=== PATIENT | female | born 1945 | race Caucasian/White ===

== ENCOUNTER 2017-11-13 16:20 | Emergency (ER) | payer MEDICARE, MEDICAID ==
[~2017-11-13] VITALS: Ht 157.5 cm; Wt 91.4 kg
[2017-11-13 16:55] LABS: BASOPHILS # (AUTO) 0.1 X10'3 (0-0.2); BASOPHILS % (AUTO) 1.4 % (0-1); EOSINOPHILS # (AUTO) 0.2 X10'3 (0-0.9); EOSINOPHILS % (AUTO) 2.5 % (0-6); HEMATOCRIT 41.9 % (35.0-45.0); HEMOGLOBIN 14.1 g/dl (12.0-16.0); LYMPHOCYTES # (AUTO) 1.9 X10'3 (1.1-4.8); LYMPHOCYTES % (AUTO) 23.2 % (21-51); MEAN CORPUSCULAR HEMOGLOBIN 28.5 PG (27.0-31.0); MEAN CORPUSCULAR HGB CONC 33.5 % (33.0-36.5); MEAN CORPUSCULAR VOLUME 85.1 FL (78-98); MEAN PLATELET VOLUME 8.9 FL (7.4-10.4); MONOCYTES # (AUTO) 0.5 X10'3 (0-0.9); MONOCYTES % (AUTO) 5.8 % (2-12); NEUTROPHILS # (AUTO) 5.6 X10'3 (1.8-7.7); NEUTROPHILS % (AUTO) 67.1 % (42-75); PLATELET COUNT 244 X10'3 (140-440); RED BLOOD COUNT 4.93 X10'6 (4.20-5.60); RED CELL DISTRIBUTION WIDTH 15.3 % (11.5-14.5); WHITE BLOOD COUNT 8.3 X10'3 (4.5-11.0)
[2017-11-13 17:08] LABS: ALANINE AMINOTRANSFERASE 20 U/L (12-78); ALBUMIN 3.3 G/DL (3.4-5.0); ALBUMIN/GLOBULIN RATIO 0.8 (1.1-1.5); ALKALINE PHOSPHATASE 83 IU/L (46-116); ANION GAP 6 (8-16); ASPARTATE AMINO TRANSFERASE 15 U/L (10-37); BILIRUBIN,TOTAL 0.3 MG/DL (0.1-1.0); BLOOD UREA NITROGEN 18 MG/DL (7-18); BUN/CREATININE RATIO 13.7 (6.6-38.0); CALCIUM 9.1 MG/DL (8.5-10.1); CHLORIDE 107 MMOL/L (99-107); CREATININE 1.31 MG/DL (0.40-0.90); GLUCOSE 131 MG/DL (70-104); POTASSIUM 4.2 MMOL/L (3.5-5.1); SODIUM 143 MMOL/L (135-145); TOTAL CARBON DIOXIDE 30.1 MMOL/L (24-32); TOTAL PROTEIN 7.6 G/DL (6.4-8.2); eGFR 40 ML/MIN
[2017-11-13 17:47] VITALS: BP 163/78
== END 2017-11-13 17:53 | disposition home or self-care (01) ==
LOC: ER 16:20
DX: R07.89 Other chest pain (principal); I10 Essential (primary) hypertension; R10.84 Generalized abdominal pain; F17.200 Nicotine dependence, unspecified, uncomplicated; Z88.5 Allergy status to narcotic agent
CPT/HCPCS: 36415; 71045; 80053; 83735; 83880; 84484; 85025; 93005; 99285

== ENCOUNTER 2017-12-11 12:23 | Outpatient (CLI) | payer MEDICARE, MEDICAID | END 2017-12-11 23:59 | disposition home or self-care (01) | LOC: CARD DIAG 12:23 | PROVIDERS: ATTEND Registered Nurse | DX: I51.7 Cardiomegaly (principal); F17.200 Nicotine dependence, unspecified, uncomplicated | CPT/HCPCS: 93306 ==

== ENCOUNTER 2018-02-22 05:13 | Emergency (ER) | payer MEDICARE, MEDICAID ==
[~2018-02-22] VITALS: Ht 154.9 cm; Wt 93.3 kg
[2018-02-22] MEDS ORDERED: normal saline 1000ML IV soln IVB ONE (05:25)
[2018-02-22] MEDS ORDERED: ondansetron/PF 4mg/2ml inj IV ONE ×2 (05:25→07:05)
[2018-02-22] MEDS ORDERED: morphine 4 MG/ML inj SYRINge IV ONE ×2 (05:25→07:05)
[2018-02-22 06:18] LABS: ALANINE AMINOTRANSFERASE 15 U/L (12-78); ALBUMIN 3.5 G/DL (3.4-5.0); ALBUMIN/GLOBULIN RATIO 0.8 (1.1-1.5); ALKALINE PHOSPHATASE 72 IU/L (46-116); ANION GAP 9 (8-16); ASPARTATE AMINO TRANSFERASE 6 U/L (10-37); BILIRUBIN,TOTAL 0.3 MG/DL (0.1-1.0); BLOOD UREA NITROGEN 23 MG/DL (7-18); BUN/CREATININE RATIO 16.7 (6.6-38.0); CALCIUM 9.5 MG/DL (8.5-10.1); CHLORIDE 104 MMOL/L (99-107); CREATININE 1.38 MG/DL (0.40-0.90); GLUCOSE 99 MG/DL (70-104); POTASSIUM 4.2 MMOL/L (3.5-5.1); SODIUM 139 MMOL/L (135-145); TOTAL PROTEIN 7.8 G/DL (6.4-8.2); eGFR 38 ML/MIN
[2018-02-22 06:21] LABS: BASOPHILS # (AUTO) 0.1 X10'3 (0-0.2); EOSINOPHILS # (AUTO) 0.3 X10'3 (0-0.9); EOSINOPHILS % (AUTO) 3.4 % (0-6); HEMATOCRIT 41.6 % (35.0-45.0); HEMOGLOBIN 14.1 g/dl (12.0-16.0); LYMPHOCYTES # (AUTO) 1.9 X10'3 (1.1-4.8); LYMPHOCYTES % (AUTO) 23.7 % (21-51); MEAN CORPUSCULAR HEMOGLOBIN 29.1 PG (27.0-31.0); MEAN CORPUSCULAR HGB CONC 33.8 % (33.0-36.5); MONOCYTES # (AUTO) 0.4 X10'3 (0-0.9); MONOCYTES % (AUTO) 5.2 % (2-12); NEUTROPHILS # (AUTO) 5.3 X10'3 (1.8-7.7); NEUTROPHILS % (AUTO) 66.7 % (42-75); PLATELET COUNT 255 X10'3 (140-440); RED BLOOD COUNT 4.83 X10'6 (4.20-5.60); RED CELL DISTRIBUTION WIDTH 15.6 % (11.5-14.5)
[2018-02-22 06:22] LABS: LIPASE 182 U/L (73-393); TROPONIN I < 0.04 NG/ML (0.0-0.05)
[2018-02-22 06:44] LABS: CLARITY,URINE CLEAR (Clear); COLOR,URINE YELLOW (Yellow); GLUCOSE, URINE NEGATIVE (Neg); KETONES,URINE NEGATIVE (Neg); LEUKOCYTE ESTERASE ,URINE MODERATE (Neg); NITRITES, URINE NEGATIVE (Neg); OCCULT BLOOD,URINE TRACE-INTACT (Neg); PROTEIN,URINE NEGATIVE (Neg); UROBILINOGEN,URINE 0.2 E.U/dL (0.2-1.0)
[2018-02-22 06:59] LABS: UA COLLECTION TYPE CLN CATCH MIDSTREAM
[2018-02-22 07:01] LABS: BACTERIA,URINE 2+ /HPF (Neg); MUCUS STRANDS FEW /LPF (Neg); RBC,URINE 0-2 /HPF (0-2); SQUAMOUS EPITHELIAL CELL,UR MANY /LPF (FEW)
[2018-02-22] MEDS ORDERED: pantoprazole 40 MG vial IV ONE (07:05)
[2018-02-22] MEDS ORDERED: ONDA4TAB9 PO (07:35)
[2018-02-22] MEDS ORDERED: FLO0.4C PO (07:35)
[2018-02-22] MEDS ORDERED: HYDR-3965 PO (07:35)
[2018-02-22 07:46] VITALS: BP 129/80
== END 2018-02-22 08:11 | disposition home or self-care (01) ==
LOC: ER 05:14
DX: N20.0 Calculus of kidney (principal); E78.00 Pure hypercholesterolemia, unspecified; I10 Essential (primary) hypertension; Z88.6 Allergy status to analgesic agent; Z87.442 Personal history of urinary calculi
CPT/HCPCS: 36415; 74176; 80053; 81001; 83690; 84484; 85025; 96374; 96375; 96376; 99285; C9113; J2270; J2405

== ENCOUNTER 2018-11-21 10:23 | Emergency (ER) | payer MEDICARE, MEDICAID ==
[~2018-11-21] VITALS: Ht 154.9 cm; Wt 100.0 kg
[2018-11-21 11:18] LABS: BASOPHILS # (AUTO) 0.1 X10'3 (0-0.2); BASOPHILS % (AUTO) 1.1 % (0-1); EOSINOPHILS # (AUTO) 0.1 X10'3 (0-0.9); EOSINOPHILS % (AUTO) 2.3 % (0-6); HEMOGLOBIN 13.8 g/dl (12.0-16.0); LYMPHOCYTES # (AUTO) 1.3 X10'3 (1.1-4.8); LYMPHOCYTES % (AUTO) 25.3 % (21-51); MEAN CORPUSCULAR HEMOGLOBIN 28.9 PG (27.0-31.0); MEAN CORPUSCULAR HGB CONC 32.9 g/dL (33.0-36.5); MEAN CORPUSCULAR VOLUME 87.7 FL (78-98); MEAN PLATELET VOLUME 8.7 FL (7.4-10.4); MONOCYTES # (AUTO) 0.4 X10'3 (0-0.9); MONOCYTES % (AUTO) 8.8 % (2-12); NEUTROPHILS # (AUTO) 3.1 X10'3 (1.8-7.7); NEUTROPHILS % (AUTO) 62.5 % (42-75); PLATELET COUNT 265 X10'3 (140-440); RED BLOOD COUNT 4.79 X10'6 (4.20-5.60); RED CELL DISTRIBUTION WIDTH 14.9 % (11.5-14.5)
[2018-11-21 11:28] LABS: ALANINE AMINOTRANSFERASE 24 U/L (12-78); ALBUMIN 3.2 G/DL (3.4-5.0); ALBUMIN/GLOBULIN RATIO 0.7 (1.1-1.5); ALKALINE PHOSPHATASE 64 IU/L (46-116); ANION GAP 1 (8-16); ASPARTATE AMINO TRANSFERASE 18 U/L (10-37); BILIRUBIN,TOTAL 0.4 MG/DL (0.1-1.0); BLOOD UREA NITROGEN 16 MG/DL (7-18); BUN/CREATININE RATIO 12.3 (6.6-38.0); CHLORIDE 106 MMOL/L (99-107); GLUCOSE 86 MG/DL (70-104); POTASSIUM 4.7 MMOL/L (3.5-5.1); SODIUM 138 MMOL/L (135-145); TOTAL CARBON DIOXIDE 31.5 MMOL/L (24-32); TOTAL PROTEIN 7.8 G/DL (6.4-8.2); eGFR 40 ML/MIN
[2018-11-21 11:34] LABS: MAGNESIUM 1.9 MG/DL (1.5-2.4)
[2018-11-21 11:56] VITALS: BP 145/81
== END 2018-11-21 11:52 | disposition home or self-care (01) ==
LOC: ER 10:24
DX: R60.0 Localized edema (principal); R10.32 Left lower quadrant pain; E78.00 Pure hypercholesterolemia, unspecified; I10 Essential (primary) hypertension; F17.200 Nicotine dependence, unspecified, uncomplicated
CPT/HCPCS: 36415; 71045; 74176; 80053; 83735; 83880; 84484; 85025; 93005; 99284

== ENCOUNTER 2020-03-28 08:05 | Inpatient (IN) | payer MEDICARE, MEDICAID ==
[2020-03-21 15:23] LABS: LYMPHOCYTES # (AUTO) 1.6 X10'3 (1.1-4.8); MEAN CORPUSCULAR HEMOGLOBIN 24.2 PG (27.0-31.0); PRE OP HEMOGLOBIN 14.3 g/dL (12.0-16.0); RED CELL DISTRIBUTION WIDTH 18.8 % (11.5-14.5)
[2020-03-21 15:25] LABS: BASOPHILS # (AUTO) 0.1 X10'3 (0-0.2); BASOPHILS % (AUTO) 1.5 % (0-1); EOSINOPHILS # (AUTO) 0.2 X10'3 (0-0.9); EOSINOPHILS % (AUTO) 2.9 % (0-6); LYMPHOCYTES % (AUTO) 18.9 % (21-51); MEAN CORPUSCULAR HGB CONC 31.5 g/dL (33.0-36.5); MEAN CORPUSCULAR VOLUME 76.8 FL (78-98); MEAN PLATELET VOLUME 8.8 FL (7.4-10.4); MONOCYTES # (AUTO) 0.5 X10'3 (0-0.9); MONOCYTES % (AUTO) 5.7 % (2-12); PRE OP HEMATOCRIT 45.4 % (35.0-45.0); PRE OP PLATELET COUNT 268 X10'3 (140-440)
[2020-03-21 15:36] LABS: PRE OP PROTIME 10.1 SECONDS (9.0-12.0)
[2020-03-21 15:38] LABS: ALBUMIN 3.3 G/DL (3.4-5.0); ALBUMIN/GLOBULIN RATIO 0.7 (1.1-1.5); ALKALINE PHOSPHATASE 85 IU/L (46-116); BLOOD UREA NITROGEN 13 MG/DL (7-18); BUN/CREATININE RATIO 10.6 (6.6-38.0); CALCIUM 9.4 MG/DL (8.5-10.1); CHLORIDE 100 MMOL/L (99-107); CREATININE 1.23 MG/DL (0.40-0.90); PRE OP ALT 14 U/L (30-65); PRE OP ANION GAP 6 (8-16); PRE OP AST 13 U/L (10-37); PRE OP BILIRUB, TOTAL 0.3 MG/DL (0.0-1.0); PRE OP GLUCOSE 89 MG/DL (70-104); PRE OP SODIUM 139 MMOL/L (135-145); TOTAL CARBON DIOXIDE 32.9 MMOL/L (24-32); TOTAL PROTEIN 8.1 G/DL (6.4-8.2); eGFR 43 ML/MIN
[2020-03-21 16:38] LABS: ANISOCYTOSIS 2+; MICROCYTOSIS 1+; PLATELET ESTIMATE NORMAL
[2020-03-28] VITALS (34 sets, daily range): BP systolic 137–228; BP diastolic 76–136
[~2020-03-28] VITALS: Ht 154.9 cm; Wt 94.0 kg
[~2020-03-28 08:05] MED LIST: ALLO100T PO; AMLO2.5T4 PO; ASPI-612 PO; BUPIVAcaine/PF 2.5 mg/ml (0.25%) 30ml vial ONE; BUPR75TA8 PO; CHLO25TA11 PO; CYCL5TAB14 PO; DOXY100C76 PO; FLUT1BLS4 INH; GABA300C PO; IBUP-1984 PO; LIDOcaine 1% 30ml preserv. free vial ONE; LISI10TA4 PO; OMEP40CA13 PO; OXYGEN NASALCANN; PRAV20TA4 PO; TIZA4CAP6 PO; TRAM50TA2 PO; UMEC62.5 INH; VITAMIN D3 PO; albuterol 2.5 MG/3 ML nebule NEB ONE; cefazolin/dext.iso 2gm/50ml 50 ML IV ONE; famotidine 10mg tablet PO ONE; ringers solution, lacted 1,000 ML IV SCH
[2020-03-28] MEDS ORDERED: morphine 4 MG/ML inj SYRINge IV PRN (08:20)
[2020-03-28] MEDS ORDERED: meperidine/PF 25mg/ml syringe IV PRN ×3 (08:20)
[2020-03-28] MEDS ORDERED: ringers solution, lacted 1,000 ML IV SCH (08:20)
[2020-03-28] MEDS ORDERED: proCHLORperazine 10 MG/2 ml inj IV PRN (08:20)
[2020-03-28] MEDS ORDERED: ondansetron/PF 4mg/2ml inj IV PRN ×2 (08:20→13:15)
[2020-03-28] MEDS ORDERED: sevoflurane 250ml liquid IH ONE (11:00)
[2020-03-28] MEDS ORDERED: neostigmine methylsulfate 1 MG/ML 10ml vial ONE (11:00)
[2020-03-28] MEDS ORDERED: glycopyrrolate 0.2mg/ml inj ONE (11:00)
[2020-03-28] MEDS ORDERED: fentaNYL /PF 50mcg/ml 5ml ampule ONE (11:02)
[2020-03-28] MEDS ORDERED: midazolam 2 mg/2 ml injection ONE (11:02)
[2020-03-28] MEDS ORDERED: propofol inj 20 ML IV ONE (11:03)
[2020-03-28] MEDS ORDERED: LIDOcaine 2% (20mg/ml) 5ml vial ONE (11:03)
[2020-03-28] MEDS ORDERED: rocuronium 10mg/ml inj IV ONE (11:36)
[2020-03-28] MEDS ORDERED: ondansetron/PF 4mg/2ml inj ONE (11:36)
[2020-03-28] MEDS ORDERED: dexamethasone sod phosphate 4mg/ml inj. ONE (11:36)
[2020-03-28] MEDS ORDERED: BUPIVAcaine/PF 2.5mg/ml (0.25%) 10ml vial ONE (11:38)
[2020-03-28] MEDS ORDERED: BUPIVACAINE liposomal/PF 13.3 MG/ML vial IM ONE (11:38)
[2020-03-28] MEDS ORDERED: acetaminophen 1,000mg/100ml IV 100 ML IV ONE (12:07)
[2020-03-28] MEDS ORDERED: oxyCODONE/APAP 10/325mg tablet PO PRN (12:25)
[2020-03-28] MEDS ORDERED: oxyCODONE/APAP 5-325mg tablet PO PRN (12:25)
[2020-03-28] MEDS ORDERED: naloxone 0.4 mg/ml inj ONE (12:39)
--- NOTE | 2020-03-28 12:52 | NUR ---
Received from OR via , accompanied by Anesthesiologist DR MAJANO and report given by Anesthesiolgist. PT RECIEVED NOT RESPONDIBG ORAL AIRWAY IN PLACE AND ANESTHESIA HOLDING AIRWAY OPEN. BP HIGH. DRESSINGS DI.
[2020-03-28] MEDS ORDERED: sugammadex 200mg/2ml injection IV ONE (12:58)
[2020-03-28] MEDS ORDERED: ipratropium/albuterol 3ml nebule IH ONE (13:00)
--- NOTE | 2020-03-28 13:10 | NUR ---
AFTER RECEIVING REVERSAL AGENT BY ANESTHESIA PT BECAME MORE RESPONSIVE AND IS ABLE TO MAINTAIN AIRWAY. REPIRATORY TO GIVE BREATHING TX.
[2020-03-28] MEDS ORDERED: naloxone 0.4 mg/ml inj IV PRN (13:15)
[2020-03-28] MEDS ORDERED: CADD PCA waste documentation MC PRN (13:15)
[2020-03-28] MEDS ORDERED: Potassium Cl inj 20 MEQ in ringers solution, lacted 1,000 ML IV SCH ×2 (13:15→17:50)
[2020-03-28] MEDS ORDERED: OXYGEN AIR DELIVERY SYSTEMS NASALCANN SCH (13:20)
[2020-03-28] MEDS ORDERED: enalaprilat dihydrate 2.5mg/2ml vial IV PRN ×2 (13:20→18:00)
[2020-03-28] MEDS: morphine 2 MG/ML inj. syringe IV PRN ×2 (14:13→16:43)
[2020-03-28] MEDS: HYDROmorphone/NS 1 mg/ml CADD 50 ML IV SCH ×6 (14:51→23:00)
[2020-03-28] MEDS: lisinopril 20mg tablet PO SCH (15:36)
--- NOTE | 2020-03-28 16:32 | NUR ---
Report called to receiving nurse. Transferred via [facility] . Special Issues communicated to receiving nurse. PT HERE FOR 3.5HRS DUE TO RESPIRATORY AND PAIN CONTROL. SHE IS NOW AWAKE AND ORIENTED. VITALS STABLE. DRESSINGS DI. STATES PAIN IMPROVING. TO SURGICAL RM 344B AT THIS TIME.
[2020-03-28] MEDS: gabapentin 300mg capsule PO SCH (17:33)
[2020-03-28] MEDS ORDERED: amLODIPine 5mg tablet PO ONE (17:45)
[2020-03-28] MEDS ORDERED: hydrALAZINE 20mg/ml inj. IV PRN (17:45)
--- NOTE | 2020-03-28 17:47 | NUR ---
Dr Beach helping Dr Leon with patients BP current BP is 180/116 manual and 200/117 HR 70-80's with automatic cuff. Patients Pain 5/10.
--- NOTE | 2020-03-28 18:00 | NUR ---
Bladder scanned patient showed to have 324ml's in bladder. Patient was assisted to bed side commode by PCT Fidelia patient did void but toilet paper absorbed output will continue to monitor and bladder scan per orders.
[2020-03-28] MEDS: normal saline 1000ml 1,000 ML IV SCH (18:19)
--- NOTE | 2020-03-28 18:40 | NUR ---
Received report from SHIRLENE Zarate. Patient awake and alert on 4L NC, in no apparent distress. Call light and items of frequent use within reach. Will continue to monitor.
--- NOTE | 2020-03-28 18:58 | NUR ---
Problems reprioritized. Patient report given, questions answered & plan of care reviewed with Marley GARBER and Edilma GARBER.
--- NOTE | 2020-03-28 19:05 | NUR ---
Patient in room [facility]. I have received report from Tessa GARBER and had the opportunity to ask questions and assume patient care.
--- NOTE | 2020-03-28 20:28 | NUR ---
Pt voided two times and put toilet paper in the bedside commode both times. Educated pt to the importance of monitoring her output to avoid straight cath and disposing of toilet paper in trash can. Pt states she understands.
[2020-03-28] MEDS: tizanidine 4mg tablet PO SCH (21:04)
[2020-03-28] MEDS: traMADol 50MG tablet PO SCH (21:04)
[2020-03-29] MEDS: gabapentin 300mg capsule PO SCH ×4 (00:21→23:41)
[2020-03-29] MEDS: HYDROmorphone/NS 1 mg/ml CADD 50 ML IV SCH ×5 (01:00→09:00)
[2020-03-29 04:00] VITALS: BP 136/86
--- NOTE | 2020-03-29 06:10 | NUR ---
Problems reprioritized. Patient report given, questions answered & plan of care reviewed with SHIRLENE Lopez.
--- NOTE | 2020-03-29 06:25 | NUR ---
Problems reprioritized. Patient report given, questions answered & plan of care reviewed with John GARBER.
--- NOTE | 2020-03-29 06:30 | NUR ---
Patient in room [facility] 344. I have received report from Marley GARBER & Edilma GARBER and had the opportunity to ask questions and assume patient care.
[2020-03-29 07:00] VITALS: BP 148/76
--- NOTE | 2020-03-29 07:30 | NUR ---
Per pharmacist, hold Tramadol while patient is on Dilaudid CADD as it is also considered opiate.
[2020-03-29] MEDS: pantoprazole 40mg Tablet.DR PO SCH (07:34)
[2020-03-29] MEDS: amLODIPine 2.5mg tablet PO SCH (07:34)
[2020-03-29] MEDS: allopurinol 100mg tablet PO SCH (07:35)
[2020-03-29] MEDS: tizanidine 4mg tablet PO SCH ×2 (07:35→20:13)
[2020-03-29] MEDS: lisinopril 20mg tablet PO SCH (07:37)
[2020-03-29] MEDS: aspirin 81mg tab.chew PO SCH (07:39)
[2020-03-29] MEDS: enoxaparin 40mg/0.4ml syringe SQ SCH (07:40)
[2020-03-29] MEDS ORDERED: albuterol 2.5 MG/3 ML nebule ONE (08:52)
--- NOTE | 2020-03-29 09:02 | NUR ---
Paged Dr. Beach PAGER ID: [phone] MESSAGE: Surgical Flr John RN ext [phone]. RE: Tessa Hinkle. Patient had episode of "choking" after she drank coffee, not able to speak for a few seconds , her sats went down to 80's at that time. She is fine now. Do u want ST eval and/or CXR order?
[2020-03-29 11:00] VITALS: BP 106/64
[2020-03-29] MEDS: albuterol 2.5 MG/3 ML nebule NEB SCH ×3 (11:43→23:18)
[2020-03-29] MEDS: traMADol 50MG tablet PO SCH ×2 (12:22→20:14)
[2020-03-29] MEDS: pravastatin 40mg tablet PO SCH (12:36)
[2020-03-29] MEDS: normal saline 1000ml 1,000 ML IV SCH (14:21)
--- NOTE | 2020-03-29 14:58 | NUR ---
Patient ambulated in the hallway from her room x 1 lap.
--- NOTE | 2020-03-29 17:00 | NUR ---
Student documentation: I have reviewed and agree with all interventions, assessments performed and documented by Wilma GIFFORD from [facility].
--- NOTE | 2020-03-29 18:45 | NUR ---
Problems reprioritized. Patient report given, questions answered & plan of care reviewed with Page GARBER..
--- NOTE | 2020-03-29 19:42 | NUR ---
Paged to pt's room by RN for low SpO2. The patient's bubbler on nasal cannula was cross threaded and not working. Corrected this problem and patient's saturations improved. Administered scheduled breathing tx and set up pt's home CPAP. Patient resting comfortably.
[2020-03-29 20:00] VITALS: BP 127/65
--- NOTE | 2020-03-29 22:09 | NUR ---
I have received report from Mei GARBER and had the opportunity to ask questions and assume patient care.
[2020-03-30] VITALS: BP 116/66
--- NOTE | 2020-03-30 02:34 | NUR ---
called. pt urine output 100 so far for tonight. pt has been bladder scanned 3 times all scans <150. made aware of low urine output. no new orders at this time. will continue to monitor
[2020-03-30] MEDS: albuterol 2.5 MG/3 ML nebule NEB SCH ×4 (03:00→20:31)
[2020-03-30] MEDS: normal saline 1000ml 1,000 ML IV SCH (04:30)
--- NOTE | 2020-03-30 06:21 | NUR ---
Problems reprioritized. Patient report given, questions answered & plan of care reviewed with Rashel GARBER.
--- NOTE | 2020-03-30 06:55 | NUR ---
Patient in room [facility]. I have received report from SHIRLENE Abel and had the opportunity to ask questions and assume patient care.
[2020-03-30 07:24] VITALS: BP 134/80
[2020-03-30] MEDS ORDERED: magnesium hydroxide 30ml (MOM) UD suspension PO ONE (07:40)
[2020-03-30] MEDS: allopurinol 100mg tablet PO SCH (08:08)
[2020-03-30] MEDS: enoxaparin 40mg/0.4ml syringe SQ SCH (08:08)
[2020-03-30] MEDS: aspirin 81mg tab.chew PO SCH (08:08)
[2020-03-30] MEDS: amLODIPine 2.5mg tablet PO SCH (08:09)
[2020-03-30] MEDS: gabapentin 300mg capsule PO SCH ×2 (08:09→16:05)
[2020-03-30] MEDS: lisinopril 20mg tablet PO SCH (08:10)
[2020-03-30] MEDS: traMADol 50MG tablet PO SCH ×3 (08:10→20:19)
[2020-03-30] MEDS: pantoprazole 40mg Tablet.DR PO SCH (08:10)
[2020-03-30] MEDS: tizanidine 4mg tablet PO SCH ×2 (08:10→20:19)
[2020-03-30] MEDS: pravastatin 40mg tablet PO SCH (08:10)
[2020-03-30] MEDS ORDERED: OXYC1TAB17 PO (09:49)
[2020-03-30] MEDS ORDERED: FLU VACC QS2020-21(6MOS UP)/PF 60 MCG/0.5 ML SYRINGE IMVAC ONE (10:00)
[2020-03-30 11:00] VITALS: BP 114/50
[2020-03-30] MEDS ORDERED: furosemide 40mg/4ml inj IV ONE (12:25)
--- NOTE | 2020-03-30 13:16 | NUR ---
DC pending as PTx eval is needed to eval for home safety. JUAN Reynoso notified, SHIRLENE Kiser aware.
[2020-03-30 18:00] VITALS: BP 146/79
--- NOTE | 2020-03-30 18:26 | NUR ---
Received report from SHIRLENE Kiser. Patient is awake and alert on room air, in no apparent distress. Call light and items of frequent use within reach. Will continue to monitor.
--- NOTE | 2020-03-30 18:39 | NUR ---
1500 SVN treatment triaged
--- NOTE | 2020-03-30 18:43 | NUR ---
Problems reprioritized. Patient report given, questions answered & plan of care reviewed with SHIRLENE Abel.
[2020-03-30] MEDS ORDERED: albuterol 2.5 MG/3 ML nebule NEB PRN (23:10)
--- NOTE | 2020-03-30 23:50 | NUR ---
Patient noted to be more lethargic than usual and unable to awaken to voice; she would wake up upon patting on shoulder or pressing on nail bed. Informed MD Caleb and he came up to see patient at bedside. Ordered ABGs and help Zanaflex and Tramadol. Will continue to monitor
[2020-03-30 23:51] LABS: ABG BASE EXCESS 4.7 mmol/L (-2.0-2.0); ABG HCO3 32.6 mmol/L (22.0-26.0); ABG OXYGEN SATURATION 93.8 % (94-97); ABG PCO2 (T) 65.3 mmHg (32.0-45.0); ABG PO2 (T) 75.3 mmHg (75.0-100.0); ALLEN'S TEST POSITIVE; FCOHb 0.7 % (0.0-3.9); FMetHb 0.3 % (0.0-1.5); FO2Hb 92.9 % (94-97); PATIENT TEMPERATURE 37.6; PEEP 5 cm H2O; TOTAL HEMOGLOBIN 13.4 G/dl (12.0-16.0)
[2020-03-31] VITALS: BP_SYST 124; BP_SYST 126; BP_DIAS 56; BP_DIAS 63
--- NOTE | 2020-03-31 00:05 | NUR ---
ABGs showed patient to be in acidotic state. PH was 7.32 and CO2 was 63. MD ordered the patient to be on CPAP and repeat ABGs in an hour. Will continue to monitor.
--- NOTE | 2020-03-31 02:24 | NUR ---
was called regarding pt second set of ABGs. pCO2 was 59.9 and PH was 7.345. stated that "ABGs had slightly improved." No new orders at this time. will continue to monitor
--- NOTE | 2020-03-31 06:10 | NUR ---
Problems reprioritized. Patient report given, questions answered & plan of care reviewed with SHIRLENE Alex.
--- NOTE | 2020-03-31 07:03 | NUR ---
Patient in room [facility] 356. I have received report from Marley GARBER and had the opportunity to ask questions and assume patient care.
[2020-03-31] MEDS: gabapentin 300mg capsule PO SCH ×3 (07:45→15:28)
[2020-03-31] MEDS: aspirin 81mg tab.chew PO SCH (07:45)
[2020-03-31] MEDS: pantoprazole 40mg Tablet.DR PO SCH (07:45)
[2020-03-31] MEDS: amLODIPine 2.5mg tablet PO SCH (07:46)
[2020-03-31] MEDS: allopurinol 100mg tablet PO SCH (07:46)
[2020-03-31] MEDS: lisinopril 20mg tablet PO SCH (07:46)
[2020-03-31] MEDS: enoxaparin 40mg/0.4ml syringe SQ SCH (07:47)
[2020-03-31] MEDS: pravastatin 40mg tablet PO SCH (07:54)
[2020-03-31 08:00] VITALS: BP 166/76
[2020-03-31 11:00] VITALS: BP 163/69
[2020-03-31] MEDS ORDERED: furosemide 40mg/4ml inj IV ONE (13:10)
[2020-03-31 18:00] VITALS: BP 148/84
--- NOTE | 2020-03-31 18:16 | NUR ---
Problems reprioritized. Patient report given, questions answered & plan of care reviewed with Luma GARBER.
--- NOTE | 2020-03-31 18:54 | NUR ---
Patient in room [facility]. I have received report from SHIRLENE Alex and had the opportunity to ask questions and assume patient care.
[2020-04-01] VITALS: BP 126/65
[2020-04-01] MEDS: gabapentin 300mg capsule PO SCH ×2 (00:37→07:49)
[2020-04-01 06:51] VITALS: BP 148/88
[2020-04-01] MEDS: lisinopril 20mg tablet PO SCH (07:48)
[2020-04-01] MEDS: allopurinol 100mg tablet PO SCH (07:48)
[2020-04-01] MEDS: pantoprazole 40mg Tablet.DR PO SCH (07:48)
[2020-04-01] MEDS: aspirin 81mg tab.chew PO SCH (07:48)
[2020-04-01] MEDS: amLODIPine 2.5mg tablet PO SCH (07:49)
[2020-04-01] MEDS: pravastatin 40mg tablet PO SCH (07:49)
[2020-04-01] MEDS: enoxaparin 40mg/0.4ml syringe SQ SCH (07:51)
[2020-04-01] MEDS: traMADol 50MG tablet PO SCH (08:00)
[2020-04-01] MEDS: tizanidine 4mg tablet PO SCH (08:00)
[2020-04-01 11:15] VITALS: BP 143/75
--- NOTE | 2020-04-01 15:28 | NUR ---
PT DISCHARGED IN STABLE CONDITION. LEFT FACILITY VIA [facility]. IV DC CANULA INTACT. ALL BELONGINGS IN HAND INCLUDING HOME CPAP. Addendum: 04/01/20 at 1531 by Felicia Christopher RN Amended: Links added.
== END 2020-04-01 15:20 | DRG 354 ==
LOC: PAS 08:05 → SUR 3N 13:14 → OBSVTOIN 03-30 16:59
PROVIDERS: ADMIT Surgery; ATTEND Surgery
PROC: 8E0W4CZ Robotic Assisted Procedure of Trunk Region, Percutaneous Endoscopic Approach (ICD-10-PCS; 2020-03-28)
PROC: 3E0T3BZ Introduction of Anesthetic Agent into Peripheral Nerves and Plexi, Percutaneous Approach (ICD-10-PCS; 2020-03-28)
PROC: 0WUF4JZ Supplement Abdominal Wall with Synthetic Substitute, Percutaneous Endoscopic Approach (ICD-10-PCS; principal; 2020-03-28 11:00)
PROC: 5A09357 Assistance with Respiratory Ventilation, Less than 24 Consecutive Hours, Continuous Positive Airway Pressure (ICD-10-PCS; 2020-03-29)
PROC: 3E02340 Introduction of Influenza Vaccine into Muscle, Percutaneous Approach (ICD-10-PCS; 2020-03-30)
PROC: 5A09357 Assistance with Respiratory Ventilation, Less than 24 Consecutive Hours, Continuous Positive Airway Pressure (ICD-10-PCS; 2020-03-31)
DX: K43.6 Other and unspecified ventral hernia with obstruction, without gangrene (principal); J98.11 Atelectasis; I10 Essential (primary) hypertension; E66.01 Morbid (severe) obesity due to excess calories; G47.30 Sleep apnea, unspecified; R33.9 Retention of urine, unspecified; Z68.39 Body mass index [BMI] 39.0-39.9, adult; Z23 Encounter for immunization; Z88.8 Allergy status to other drugs, medicaments and biological substances; Z79.899 Other long term (current) drug therapy; Z79.82 Long term (current) use of aspirin
CPT/HCPCS: 36415; 36600; 71046; 80053; 82803; 82948; 85008; 85018; 85025; 85610; 85730; 87635; 92508; 92616; 93005; 94640; 94760; 97116; 97161; 97530; A4215; A4618; C1781; C9290; C9399; G0378; J0131; J0360; J1100; J1170; J1650; J1940; J2001; J2250; J2270; J2310; J2405; J2704; J2710; J3010; J3490; J7030; J7120; Q2039

== ENCOUNTER 2020-08-30 09:29 | Day surgery (SDC) | payer MEDICARE, MEDICAID ==
[~2020-08-30] VITALS: Ht 154.9 cm; Wt 90.5 kg
[~2020-08-30 09:29] MED LIST changes: -BUPIVAcaine/PF 2.5 mg/ml (0.25%) 30ml vial ONE; -BUPR75TA8 PO; -CHLO25TA11 PO; -CYCL5TAB14 PO; -DOXY100C76 PO; -LIDOcaine 1% 30ml preserv. free vial ONE; +LISI10TA27 PO; -LISI10TA4 PO; +OXYC1TAB17 PO; -albuterol 2.5 MG/3 ML nebule NEB ONE; -cefazolin/dext.iso 2gm/50ml 50 ML IV ONE; -famotidine 10mg tablet PO ONE; -ringers solution, lacted 1,000 ML IV SCH
[2020-08-30 09:50] VITALS: BP 150/75
[2020-08-30] MEDS ORDERED: fentaNYL/PF 50MCG/1 ML 2ML syringe ONE (10:05)
[2020-08-30] MEDS ORDERED: MIDAZolam 1 MG/ML 5ML VIAL ONE (10:05)
[2020-08-30] MEDS ORDERED: LIDOcaine Viscous 15ml cup ONE (10:06)
[2020-08-30] MEDS ORDERED: CLON0.1T PO (10:29)
[2020-08-30] MEDS ORDERED: BUPR75TA8 PO ×2 (10:30→10:31)
[2020-08-30] MEDS ORDERED: LISI40TA13 PO (10:32)
[2020-08-30] MEDS ORDERED: OMEP-50 PO (10:33)
[2020-08-30 11:40] VITALS: BP 142/74
[2020-08-30 11:50] VITALS: BP 151/77
[2020-08-30 12:00] VITALS: BP 160/73
[2020-08-30 12:10] VITALS: BP 159/79
[2020-08-30 12:20] VITALS: BP 149/82
== END 2020-08-30 13:05 | disposition home or self-care (01) ==
LOC: GI LAB 09:29
PROVIDERS: ATTEND Internal Medicine Gastroenterology
DX: R13.10 Dysphagia, unspecified (principal); K22.2 Esophageal obstruction; K44.9 Diaphragmatic hernia without obstruction or gangrene; K29.70 Gastritis, unspecified, without bleeding; I10 Essential (primary) hypertension; Z79.899 Other long term (current) drug therapy; Z88.8 Allergy status to other drugs, medicaments and biological substances
CPT/HCPCS: 43450; J2250; J3010; J7040; 99152; A4620